=== PATIENT | female | born 1965 | race Caucasian/White ===

== ENCOUNTER 2016-11-27 01:44 | Emergency (ER) | payer MEDICAID ==
[~2016-11-27] VITALS: Ht 160 cm; Wt 105.5 kg
[~2016-11-27 01:44] MED LIST: ALBU8.5H IH; ARIP30TA5 PO; BECL8.7A5 IH; FLUO-191 PO; MOME13HF IH; OMEP20 PO
[2016-11-27] MEDS ORDERED: TRAM50TA4 PO (01:56)
[2016-11-27] MEDS ORDERED: BARIUM SULFATE 0.1% SUSPENSION 450 ML BOTTLE PO ONE (02:45)
[2016-11-27] MEDS ORDERED: ONDANSETRON HCL 4 MG/2 ML VIAL IVP ONE (03:00)
[2016-11-27] MEDS ORDERED: HYDROmorphone 2 MG/ML SYRINGE IVP ONE (03:00)
[2016-11-27 03:14] LABS: BASOPHILS # (AUTO) 0.04 K/uL (0.00-0.20); BASOPHILS % (AUTO) 0.3 % (0.0-2.0); EOSINOPHILS # (AUTO) 0.44 K/uL (0.00-0.70); EOSINOPHILS % (AUTO) 3.93 % (1.0-6.0); HEMATOCRIT 41.2 % (36-46); HEMOGLOBIN 13.6 g/dL (12.0-16.0); LYMPHOCYTES # (AUTO) 4.6 K/uL (1.0-4.8); LYMPHOCYTES % (AUTO) 41.2 % (22.0-44.0); MEAN CORPUSCULAR HEMOGLOBIN 29.7 pg (26.0-34.0); MEAN CORPUSCULAR VOLUME 90 fL (80-100); MONOCYTES # (AUTO) 1.1 K/uL (0.1-1.0); NEUTROPHILS % (AUTO) 44.5 % (40.0-70.0); PLATELET COUNT (AUTO) 320 K/uL (150-450); RED BLOOD CELL COUNT(AUTO) 4.57 MIL/uL (4.00-5.20); RED CELL DISTRIBUTION WIDTH 15.1 % (11.5-14.5); WHITE BLOOD COUNT (AUTO) 11.2 K/uL (4.5-11.0)
[2016-11-27 03:16] LABS: APPEARANCE,URINE CLOUDY (CLEAR); GLUCOSE, URINE (UA) NEGATIVE (NEGATIVE); KETONES,URINE NEGATIVE (NEGATIVE); LEUKOCYTE ESTERASE ,URINE SMALL (NEGATIVE); OCCULT BLOOD,URINE NEGATIVE (NEGATIVE); PROTEIN,URINE NEGATIVE (NEGATIVE)
[2016-11-27 03:21] LABS: RBC,URINE 0-2 /HPF (0-2)
[2016-11-27 03:22] LABS: ANION GAP 7 mmol/L (8-16); CALCIUM, TOTAL 8.2 mg/dL (8.8-10.5); CARBON DIOXIDE 30 mmol/L (22-29); CHLORIDE 106 mmol/L (98-107); CREATININE 0.71 mg/dL (0.60-1.30); GLOMERULAR FILTR. RATE CALC > 60 mL/min (>60); POTASSIUM 3.6 mmol/L (3.5-5.1); SODIUM SERUM 143 mmol/L (136-145); UREA NITROGEN, BLOOD 13 mg/dL (7-18)
[2016-11-27 03:22] LABS: SQUAMOUS EPITHELIAL CELL,UR Many /LPF (None Seen)
[2016-11-27 03:28] LABS: ALANINE AMINOTRANSFERASE 23 U/L (12-78); ALBUMIN 3.2 g/dL (3.4-5.0); ASPARTATE AMINOTRANSFERASE 14 U/L (15-37); BILIRUBIN,TOTAL 0.2 mg/dL (0.1-1.0); TOTAL PROTEIN, SERUM 7.4 g/dL (6.4-8.2)
[2016-11-27] MEDS ORDERED: IOVERSOL 350 MG/ML 150 ML VIAL ONE (04:08)
[2016-11-27] MEDS ORDERED: SODIUM CHLORIDE 0.9% 100 ML ONE (04:09)
[2016-11-27 05:30] VITALS: BP 114/78
[2016-11-27] MEDS ORDERED: HYDROCODONE/ACETAMINOPHEN 5-325 MG TABLET PO ONE (05:30)
[2016-11-27] MEDS ORDERED: MAG HYDROX/AL HYDROX/SIMETH ES 30 ML SUSPENSION UDCUP PO ONE (05:30)
== END 2016-11-27 05:44 | disposition home or self-care (01) ==
LOC: EMS 01:45
DX: R10.84 Generalized abdominal pain (principal); M25.561 Pain in right knee; J45.909 Unspecified asthma, uncomplicated; I10 Essential (primary) hypertension; J44.9 Chronic obstructive pulmonary disease, unspecified; K21.9 Gastro-esophageal reflux disease without esophagitis; E78.00 Pure hypercholesterolemia, unspecified; E11.9 Type 2 diabetes mellitus without complications; E66.9 Obesity, unspecified; F17.210 Nicotine dependence, cigarettes, uncomplicated; Z68.41 Body mass index [BMI] 40.0-44.9, adult; Z98.84 Bariatric surgery status; Z88.1 Allergy status to other antibiotic agents
CPT/HCPCS: 36415; 71010; 74177; 80053; 81001; 83605; 83690; 84484; 85025; 87077; 87086; 93005; 96374; 96375; 99285; 99406; J1170; J2405; J7050; Q9967; Z7610

== ENCOUNTER 2016-12-29 16:09 | Emergency (ER) | payer MEDICAID ==
[~2016-12-29] VITALS: Ht 160 cm; Wt 100.0 kg
[~2016-12-29 16:09] MED LIST changes: +TRAM50TA4 PO
[2016-12-29] MEDS ORDERED: ATOR10TA84 PO (16:27)
[2016-12-29] MEDS ORDERED: SYMB8060 IH (16:27)
[2016-12-29] MEDS ORDERED: FAMOTIDINE 10 MG/ML 2 ML VIAL IVP ONE (17:30)
[2016-12-29] MEDS ORDERED: SODIUM CHLORIDE 0.9% 1,000 ML IV ONE (17:30)
[2016-12-29] MEDS ORDERED: MORPHINE SULFATE 4 MG/ML SYRINGE IVP ONE (17:30)
[2016-12-29] MEDS ORDERED: ONDANSETRON HCL 4 MG/2 ML VIAL IVP ONE ×2 (17:30→19:45)
[2016-12-29 18:15] LABS: BASOPHILS # (AUTO) 0.09 K/uL (0.00-0.20); BASOPHILS % (AUTO) 0.8 % (0.0-2.0); EOSINOPHILS # (AUTO) 0.53 K/uL (0.00-0.70); EOSINOPHILS % (AUTO) 4.79 % (1.0-6.0); HEMATOCRIT 45.3 % (36-46); HEMOGLOBIN 14.6 g/dL (12.0-16.0); LYMPHOCYTES # (AUTO) 4.4 K/uL (1.0-4.8); LYMPHOCYTES % (AUTO) 40.2 % (22.0-44.0); MEAN CORPUSCULAR HEMOGLOBIN 29.2 pg (26.0-34.0); MEAN CORPUSCULAR HGB CONC 32.3 G/dL (31.0-37.0); MEAN CORPUSCULAR VOLUME 90 fL (80-100); MONOCYTES # (AUTO) 0.8 K/uL (0.1-1.0); MONOCYTES % (AUTO) 7.4 % (2.0-9.0); NEUTROPHILS # (AUTO) 5.2 K/uL (1.8-7.7); NEUTROPHILS % (AUTO) 46.9 % (40.0-70.0); PLATELET COUNT (AUTO) 283 K/uL (150-450); RED BLOOD CELL COUNT(AUTO) 5.01 MIL/uL (4.00-5.20); WHITE BLOOD COUNT (AUTO) 11.1 K/uL (4.5-11.0)
[2016-12-29 18:29] LABS: ANION GAP 8 mmol/L (8-16); CALCIUM, TOTAL 8.7 mg/dL (8.8-10.5); CARBON DIOXIDE 29 mmol/L (22-29); CHLORIDE 105 mmol/L (98-107); CREATININE 0.85 mg/dL (0.60-1.30); GLOMERULAR FILTR. RATE CALC > 60 mL/min (>60); POTASSIUM 3.5 mmol/L (3.5-5.1); SODIUM SERUM 142 mmol/L (136-145); UREA NITROGEN, BLOOD 10 mg/dL (7-18)
[2016-12-29 18:44] LABS: ALANINE AMINOTRANSFERASE 23 U/L (12-78); ALBUMIN 3.7 g/dL (3.4-5.0); ASPARTATE AMINOTRANSFERASE 18 U/L (15-37); BILIRUBIN,TOTAL 0.3 mg/dL (0.1-1.0); TOTAL PROTEIN, SERUM 7.8 g/dL (6.4-8.2)
[2016-12-29] MEDS ORDERED: HYDROmorphone 2 MG/ML SYRINGE IVP ONE (19:45)
[2016-12-29 19:53] LABS: APPEARANCE,URINE CLEAR (CLEAR); GLUCOSE, URINE (UA) NEGATIVE (NEGATIVE); KETONES,URINE NEGATIVE (NEGATIVE); LEUKOCYTE ESTERASE ,URINE SMALL (NEGATIVE); OCCULT BLOOD,URINE NEGATIVE (NEGATIVE); PH,URINE 6.5 (5.0-8.0); PROTEIN,URINE NEGATIVE (NEGATIVE)
[2016-12-29 19:59] LABS: ADD UA MICROSCOPIC YES
[2016-12-29 20:01] LABS: RBC,URINE None Seen /HPF (0-2)
[2016-12-29 21:09] VITALS: BP 118/89
== END 2016-12-29 21:10 | disposition home or self-care (01) ==
LOC: EMS 16:10
DX: R19.7 Diarrhea, unspecified (principal); J44.9 Chronic obstructive pulmonary disease, unspecified; F31.9 Bipolar disorder, unspecified; F41.9 Anxiety disorder, unspecified; R10.84 Generalized abdominal pain; R11.0 Nausea; J45.909 Unspecified asthma, uncomplicated; E11.9 Type 2 diabetes mellitus without complications; E78.00 Pure hypercholesterolemia, unspecified; K21.9 Gastro-esophageal reflux disease without esophagitis; G43.909 Migraine, unspecified, not intractable, without status migrainosus; E66.9 Obesity, unspecified; I10 Essential (primary) hypertension; F17.210 Nicotine dependence, cigarettes, uncomplicated; Z87.19 Personal history of other diseases of the digestive system; Z86.19 Personal history of other infectious and parasitic diseases; Z98.84 Bariatric surgery status; Z90.49 Acquired absence of other specified parts of digestive tract; Z68.39 Body mass index [BMI] 39.0-39.9, adult
CPT/HCPCS: 36415; 80053; 80307; 81001; 83690; 85025; 96361; 96374; 96375; 96376; 99285; 99406; J1170; J2270; J2405; J3490; J7030

== ENCOUNTER 2017-02-01 17:09 | Emergency (ER) | payer MEDICAID ==
[~2017-02-01] VITALS: Ht 160 cm; Wt 100.0 kg
[~2017-02-01 17:09] MED LIST changes: +ATOR10TA84 PO; -BECL8.7A5 IH; -MOME13HF IH; +SYMB8060 IH; -TRAM50TA4 PO
[2017-02-01] MEDS ORDERED: MULT1CAP32 PO (17:29)
[2017-02-01 19:03] VITALS: BP 135/84
== END 2017-02-01 19:19 | disposition home or self-care (01) ==
LOC: EMS 17:18
DX: S10.91XA Abrasion of unspecified part of neck, initial encounter (principal); J44.9 Chronic obstructive pulmonary disease, unspecified; J45.909 Unspecified asthma, uncomplicated; E78.00 Pure hypercholesterolemia, unspecified; E11.9 Type 2 diabetes mellitus without complications; K21.9 Gastro-esophageal reflux disease without esophagitis; F17.210 Nicotine dependence, cigarettes, uncomplicated; Z88.1 Allergy status to other antibiotic agents; W57.XXXA Bitten or stung by nonvenomous insect and other nonvenomous arthropods, initial encounter; Y93.89 Activity, other specified; Y92.89 Other specified places as the place of occurrence of the external cause; Y99.8 Other external cause status
CPT/HCPCS: 99283

== ENCOUNTER 2017-02-12 20:57 | Emergency (ER) | payer MEDICAID ==
[~2017-02-12] VITALS: Ht 162.6 cm; Wt 100.0 kg
[~2017-02-12 20:57] MED LIST changes: +MULT1CAP32 PO
[2017-02-12] MEDS ORDERED: ACETAMINOPHEN 325 MG TABLET PO ONE (23:30)
[2017-02-13] MEDS ORDERED: KETOROLAC TROMETHAMINE 30 MG/ML VIAL IVP ONE
[2017-02-13] MEDS ORDERED: SODIUM CHLORIDE 0.9% 1,000 ML IV ONE
[2017-02-13] MEDS ORDERED: VALPROATE SODIUM 500 MG in DEXTROSE 5%-WATER 50 ML IV ONE ×2
[2017-02-13] MEDS ORDERED: ONDANSETRON HCL 4 MG/2 ML VIAL IVP ONE
[2017-02-13 00:35] LABS: BASOPHILS # (AUTO) 0.05 K/uL (0.00-0.20); BASOPHILS % (AUTO) 0.6 % (0.0-2.0); EOSINOPHILS # (AUTO) 0.41 K/uL (0.00-0.70); EOSINOPHILS % (AUTO) 4.13 % (1.0-6.0); HEMOGLOBIN 14.2 g/dL (12.0-16.0); LYMPHOCYTES # (AUTO) 4.5 K/uL (1.0-4.8); LYMPHOCYTES % (AUTO) 45.3 % (22.0-44.0); MEAN CORPUSCULAR HGB CONC 33.1 G/dL (31.0-37.0); MEAN CORPUSCULAR VOLUME 91 fL (80-100); MONOCYTES # (AUTO) 0.9 K/uL (0.1-1.0); MONOCYTES % (AUTO) 8.7 % (2.0-9.0); NEUTROPHILS # (AUTO) 4.1 K/uL (1.8-7.7); NEUTROPHILS % (AUTO) 41.3 % (40.0-70.0); PLATELET COUNT (AUTO) 288 K/uL (150-450); RED BLOOD CELL COUNT(AUTO) 4.75 MIL/uL (4.00-5.20); RED CELL DISTRIBUTION WIDTH 15.2 % (11.5-14.5); WHITE BLOOD COUNT (AUTO) 9.9 K/uL (4.5-11.0)
[2017-02-13 00:44] LABS: ANION GAP 7 mmol/L (8-16); CALCIUM, TOTAL 8.6 mg/dL (8.8-10.5); CARBON DIOXIDE 29 mmol/L (22-29); CHLORIDE 106 mmol/L (98-107); CREATININE 0.82 mg/dL (0.60-1.30); GLOMERULAR FILTR. RATE CALC > 60 mL/min (>60); POTASSIUM 4.1 mmol/L (3.5-5.1); SODIUM SERUM 142 mmol/L (136-145); UREA NITROGEN, BLOOD 15 mg/dL (7-18)
[2017-02-13 03:07] VITALS: BP 132/81
== END 2017-02-13 03:12 | disposition home or self-care (01) ==
LOC: EMS 20:59
DX: G43.909 Migraine, unspecified, not intractable, without status migrainosus (principal); F41.9 Anxiety disorder, unspecified; F31.9 Bipolar disorder, unspecified; B19.20 Unspecified viral hepatitis C without hepatic coma; E11.9 Type 2 diabetes mellitus without complications; E66.9 Obesity, unspecified; K21.9 Gastro-esophageal reflux disease without esophagitis; E78.00 Pure hypercholesterolemia, unspecified; I10 Essential (primary) hypertension; F17.210 Nicotine dependence, cigarettes, uncomplicated; J44.9 Chronic obstructive pulmonary disease, unspecified; Z98.84 Bariatric surgery status; Z88.1 Allergy status to other antibiotic agents; Z90.49 Acquired absence of other specified parts of digestive tract; Z87.19 Personal history of other diseases of the digestive system
CPT/HCPCS: 36415; 80048; 85025; 96374; 96375; 99284; 99406; G0480; J1885; J2405; J3490; J7030; J7060

== ENCOUNTER 2017-03-13 11:28 | Emergency (ER) | payer MEDICAID ==
[~2017-03-13] VITALS: Ht 160 cm; Wt 100.0 kg
[~2017-03-13 11:28] MED LIST changes: -MULT1CAP32 PO; -OMEP20 PO
[2017-03-13 14:23] VITALS: BP 145/89
[2017-03-15] MEDS ORDERED: CORTSOL OU (14:03)
== END 2017-03-13 14:27 | disposition home or self-care (01) ==
LOC: EMS 11:49
DX: H60.91 Unspecified otitis externa, right ear (principal); J45.909 Unspecified asthma, uncomplicated; J44.9 Chronic obstructive pulmonary disease, unspecified; E11.9 Type 2 diabetes mellitus without complications; K21.9 Gastro-esophageal reflux disease without esophagitis; E78.00 Pure hypercholesterolemia, unspecified; F17.210 Nicotine dependence, cigarettes, uncomplicated; E66.9 Obesity, unspecified; Z68.39 Body mass index [BMI] 39.0-39.9, adult; Z98.84 Bariatric surgery status; Z88.1 Allergy status to other antibiotic agents
CPT/HCPCS: 99281; 99283

== ENCOUNTER 2017-03-31 13:56 | Emergency (ER) | payer MEDICAID ==
[~2017-03-31] VITALS: Ht 160 cm; Wt 100.0 kg
[~2017-03-31 13:56] MED LIST changes: -ALBU8.5H IH; +ALBU8.5H8 IH; +ARIP30TA PO; -ARIP30TA5 PO; +CORTSOL OU
[2017-03-31 14:53] LABS: APPEARANCE,URINE HAZY (CLEAR); GLUCOSE, URINE (UA) NEGATIVE (NEGATIVE); KETONES,URINE TRACE mg/dL (NEGATIVE); LEUKOCYTE ESTERASE ,URINE MODERATE (NEGATIVE); OCCULT BLOOD,URINE NEGATIVE (NEGATIVE); PROTEIN,URINE NEGATIVE (NEGATIVE)
[2017-03-31 14:56] LABS: RBC,URINE 0-2 /HPF (0-2); SQUAMOUS EPITHELIAL CELL,UR Few /LPF (None Seen); WBC,URINE 0-2 /HPF (0-5)
[2017-03-31 14:58] LABS: URINALYSIS COMMENT Moderate Trich. seen
[2017-03-31 15:08] VITALS: BP 128/82
[2017-03-31] MEDS ORDERED: LIDOCAINE HCL/PF 1% 2 ML VIAL IM ONE (15:15)
[2017-03-31] MEDS ORDERED: CefTRIAXone SODIUM 1 GM/VIAL IM ONE (15:15)
== END 2017-03-31 15:58 | disposition home or self-care (01) ==
LOC: EMS 13:58
DX: N39.0 Urinary tract infection, site not specified (principal); A59.01 Trichomonal vulvovaginitis; R35.0 Frequency of micturition; F31.9 Bipolar disorder, unspecified; F41.9 Anxiety disorder, unspecified; F17.210 Nicotine dependence, cigarettes, uncomplicated; J44.9 Chronic obstructive pulmonary disease, unspecified; K21.9 Gastro-esophageal reflux disease without esophagitis; E78.00 Pure hypercholesterolemia, unspecified; G43.909 Migraine, unspecified, not intractable, without status migrainosus; E66.9 Obesity, unspecified; Z88.1 Allergy status to other antibiotic agents; B19.20 Unspecified viral hepatitis C without hepatic coma
CPT/HCPCS: 81001; 96372; 99283; J0696; J3490

== ENCOUNTER 2017-06-22 16:45 | Emergency (ER) | payer MEDICAID ==
[~2017-06-22] VITALS: Ht 160 cm; Wt 96.4 kg
[2017-06-22] MEDS ORDERED: PERCT PO (16:52)
[2017-06-22 17:57] LABS: BASOPHILS # (AUTO) 0.03 K/uL (0.00-0.20); BASOPHILS % (AUTO) 0.2 % (0.0-2.0); EOSINOPHILS # (AUTO) 0.37 K/uL (0.00-0.70); EOSINOPHILS % (AUTO) 2.58 % (1.0-6.0); HEMATOCRIT 41.4 % (36-46); HEMOGLOBIN 13.7 g/dL (12.0-16.0); LYMPHOCYTES # (AUTO) 2.6 K/uL (1.0-4.8); LYMPHOCYTES % (AUTO) 18.1 % (22.0-44.0); MEAN CORPUSCULAR VOLUME 91 fL (80-100); MONOCYTES # (AUTO) 1.1 K/uL (0.1-1.0); MONOCYTES % (AUTO) 7.8 % (2.0-9.0); NEUTROPHILS # (AUTO) 10.3 K/uL (1.8-7.7); NEUTROPHILS % (AUTO) 71.3 % (40.0-70.0); PLATELET COUNT (AUTO) 526 K/uL (150-450); RED BLOOD CELL COUNT(AUTO) 4.56 MIL/uL (4.00-5.20); RED CELL DISTRIBUTION WIDTH 15.3 % (11.5-14.5); WHITE BLOOD COUNT (AUTO) 14.5 K/uL (4.5-11.0)
[2017-06-22 18:00] LABS: ANION GAP 7 mmol/L (8-16); CALCIUM, TOTAL 9.1 mg/dL (8.8-10.5); CARBON DIOXIDE 31 mmol/L (22-29); CHLORIDE 99 mmol/L (98-107); CREATININE 0.58 mg/dL (0.60-1.30); GLOMERULAR FILTR. RATE CALC > 60 mL/min (>60); SODIUM SERUM 137 mmol/L (136-145); UREA NITROGEN, BLOOD 16 mg/dL (7-18)
[2017-06-22 18:06] LABS: ALANINE AMINOTRANSFERASE 44 U/L (12-78); ALBUMIN 3.3 g/dL (3.4-5.0); ASPARTATE AMINOTRANSFERASE 27 U/L (15-37); BILIRUBIN,TOTAL 0.4 mg/dL (0.1-1.0); TOTAL PROTEIN, SERUM 7.9 g/dL (6.4-8.2)
[2017-06-22 18:19] LABS: APPEARANCE,URINE CLEAR (CLEAR); GLUCOSE, URINE (UA) NEGATIVE (NEGATIVE); KETONES,URINE NEGATIVE (NEGATIVE); LEUKOCYTE ESTERASE ,URINE NEGATIVE (NEGATIVE); OCCULT BLOOD,URINE NEGATIVE (NEGATIVE); PH,URINE 5.5 (5.0-8.0); PROTEIN,URINE NEGATIVE (NEGATIVE)
[2017-06-22 18:20] LABS: ADD UA MICROSCOPIC NO
[2017-06-22] MEDS ORDERED: MORPHINE SULFATE 4 MG/ML SYRINGE IVP ONE (18:45)
[2017-06-22] MEDS ORDERED: SODIUM CHLORIDE 0.9% 1,000 ML IV ONE (18:45)
[2017-06-22] MEDS ORDERED: ONDANSETRON HCL 4 MG/2 ML VIAL IVP ONE (18:45)
[2017-06-22] MEDS ORDERED: FAMOTIDINE 10 MG/ML 2 ML VIAL IVP ONE (18:45)
[2017-06-22] MEDS ORDERED: LORazepam 2 MG/ML VIAL IVP ONE (20:30)
[2017-06-22 22:44] VITALS: BP 128/76
== END 2017-06-22 22:53 | disposition home or self-care (01) ==
LOC: EMS 16:49
DX: R11.2 Nausea with vomiting, unspecified (principal); R10.84 Generalized abdominal pain; J45.909 Unspecified asthma, uncomplicated; J44.9 Chronic obstructive pulmonary disease, unspecified; K21.9 Gastro-esophageal reflux disease without esophagitis; G43.909 Migraine, unspecified, not intractable, without status migrainosus; E78.00 Pure hypercholesterolemia, unspecified; E66.9 Obesity, unspecified; F17.210 Nicotine dependence, cigarettes, uncomplicated; Z68.37 Body mass index [BMI] 37.0-37.9, adult; Z88.8 Allergy status to other drugs, medicaments and biological substances
CPT/HCPCS: 36415; 70450; 74022; 80053; 81003; 83690; 84484; 85025; 93005; 96361; 96374; 96375; 99285; J2060; J2270; J2405; J3490; J7030

== ENCOUNTER 2017-07-25 12:44 | Emergency (ER) | payer MEDICAID ==
[~2017-07-25] VITALS: Ht 160 cm; Wt 94.5 kg
[~2017-07-25 12:44] MED LIST changes: -ARIP30TA PO; -ATOR10TA84 PO; -CORTSOL OU; -FLUO-191 PO; +PERCT PO
[2017-07-25] MEDS ORDERED: ALBUTEROL SULFATE 2.5 MG/0.5 ML NEB SOLUTION NEB ONE (13:00)
[2017-07-25] MEDS ORDERED: IPRATROPIUM BROMIDE 0.5 MG/2.5 ML NEB SOLUTION NEB ONE (13:00)
[2017-07-25] MEDS ORDERED: 0.9% SODIUM CHLORIDE 5 ML NEB SOLUTION NEB ONE (13:02)
[2017-07-25 15:21] LABS: INFLUENZA TYPE A NEGATIVE FOR TYPE A (NEGATIVE); INFLUENZA TYPE B NEGATIVE FOR TYPE B (NEGATIVE)
[2017-07-25 15:30] VITALS: BP 113/73
[2017-07-25] MEDS ORDERED: LEVOFLOXACIN 500 MG TABLET PO ONE (16:00)
[2017-07-25] MEDS ORDERED: PredniSONE 20 MG TABLET PO ONE (16:00)
== END 2017-07-25 16:05 | disposition home or self-care (01) ==
LOC: EDUNIT# 12:44 → EMS 12:46
DX: J44.1 Chronic obstructive pulmonary disease with (acute) exacerbation (principal); R06.03 Acute respiratory distress; J45.901 Unspecified asthma with (acute) exacerbation; K21.9 Gastro-esophageal reflux disease without esophagitis; E66.9 Obesity, unspecified; F17.210 Nicotine dependence, cigarettes, uncomplicated; Z88.1 Allergy status to other antibiotic agents; Z68.36 Body mass index [BMI] 36.0-36.9, adult
CPT/HCPCS: 71046; 87804; 94640; 99285; J7512; J7613

== ENCOUNTER 2017-08-15 14:48 | Emergency (ER) | payer MEDICAID ==
[~2017-08-15] VITALS: Ht 162.6 cm; Wt 89.1 kg
[2017-08-15 16:55] VITALS: BP 128/68
== END 2017-08-15 17:07 | disposition home or self-care (01) ==
LOC: EMS 14:50
DX: S60.445A External constriction of left ring finger, initial encounter (principal); R03.0 Elevated blood-pressure reading, without diagnosis of hypertension; J44.9 Chronic obstructive pulmonary disease, unspecified; J45.909 Unspecified asthma, uncomplicated; K21.9 Gastro-esophageal reflux disease without esophagitis; F17.210 Nicotine dependence, cigarettes, uncomplicated; Z88.1 Allergy status to other antibiotic agents; W49.04XA Ring or other jewelry causing external constriction, initial encounter; Y93.89 Activity, other specified; Y92.89 Other specified places as the place of occurrence of the external cause; Y99.8 Other external cause status
CPT/HCPCS: 99284

== ENCOUNTER 2018-01-16 22:55 | Emergency (ER) | payer MEDICAID ==
[~2018-01-16] VITALS: Ht 160 cm; Wt 95.5 kg
[2018-01-16] MEDS ORDERED: TRAM50TA4 PO (23:12)
[2018-01-17 00:58] VITALS: BP 116/54
== END 2018-01-17 01:01 | disposition home or self-care (01) ==
LOC: EMS 22:57
DX: M25.562 Pain in left knee (principal); M79.89 Other specified soft tissue disorders; J45.909 Unspecified asthma, uncomplicated; J44.9 Chronic obstructive pulmonary disease, unspecified; K21.9 Gastro-esophageal reflux disease without esophagitis; E78.00 Pure hypercholesterolemia, unspecified; G43.909 Migraine, unspecified, not intractable, without status migrainosus; F17.210 Nicotine dependence, cigarettes, uncomplicated; E66.9 Obesity, unspecified; Z88.1 Allergy status to other antibiotic agents; Z68.37 Body mass index [BMI] 37.0-37.9, adult; Z98.84 Bariatric surgery status
CPT/HCPCS: 99284

== ENCOUNTER 2018-03-03 18:38 | Emergency (ER) | payer MEDICAID ==
[~2018-03-03 18:38] MED LIST changes: -PERCT PO; +TRAM50TA4 PO
== END 2018-03-03 18:51 | disposition left against medical advice (07) ==
LOC: EMS 18:40
DX: H92.09 Otalgia, unspecified ear (principal); Z53.21 Procedure and treatment not carried out due to patient leaving prior to being seen by health care provider

== ENCOUNTER 2018-03-06 16:08 | Emergency (ER) | payer MEDICAID ==
[~2018-03-06] VITALS: Ht 160 cm; Wt 93.2 kg
[2018-03-06] MEDS ORDERED: IBUPROFEN 800 MG TABLET PO ONE (17:15)
[2018-03-06 17:26] VITALS: BP 105/62
== END 2018-03-06 17:27 | disposition home or self-care (01) ==
LOC: EMS 16:09
DX: H60.93 Unspecified otitis externa, bilateral (principal); F41.9 Anxiety disorder, unspecified; J45.909 Unspecified asthma, uncomplicated; F31.9 Bipolar disorder, unspecified; J44.9 Chronic obstructive pulmonary disease, unspecified; K21.9 Gastro-esophageal reflux disease without esophagitis; E78.00 Pure hypercholesterolemia, unspecified; G43.909 Migraine, unspecified, not intractable, without status migrainosus; E66.9 Obesity, unspecified; F17.210 Nicotine dependence, cigarettes, uncomplicated; Z68.36 Body mass index [BMI] 36.0-36.9, adult; Z90.49 Acquired absence of other specified parts of digestive tract; Z98.84 Bariatric surgery status; Z96.653 Presence of artificial knee joint, bilateral; Z88.1 Allergy status to other antibiotic agents
CPT/HCPCS: 99283

== ENCOUNTER 2018-10-20 20:00 | Emergency (ER) | payer MEDICAID ==
[~2018-10-20] VITALS: Ht 157.5 cm; Wt 95.5 kg
[2018-10-20 20:04] VITALS: BP 147/103
[2018-10-20] MEDS ORDERED: ATOR40TA28 PO (20:08)
[2018-10-20] MEDS ORDERED: IBUPROFEN 600 MG TABLET PO ONE (20:30)
== END 2018-10-20 22:22 | disposition left against medical advice (07) ==
LOC: EMS 20:01
DX: S63.502A Unspecified sprain of left wrist, initial encounter (principal); E78.00 Pure hypercholesterolemia, unspecified; K21.9 Gastro-esophageal reflux disease without esophagitis; J44.9 Chronic obstructive pulmonary disease, unspecified; F31.9 Bipolar disorder, unspecified; F41.9 Anxiety disorder, unspecified; F17.210 Nicotine dependence, cigarettes, uncomplicated; Z88.1 Allergy status to other antibiotic agents; W18.39XA Other fall on same level, initial encounter; Y93.89 Activity, other specified; Y92.89 Other specified places as the place of occurrence of the external cause; Y99.8 Other external cause status

== ENCOUNTER 2018-11-06 16:38 | Emergency (ER) | payer MEDICAID ==
[~2018-11-06] VITALS: Ht 157.5 cm; Wt 100.0 kg
[~2018-11-06 16:38] MED LIST changes: +ATOR40TA28 PO
[2018-11-06] MEDS ORDERED: HYD50 PO (16:43)
[2018-11-06] MEDS ORDERED: PERM60CR4 TP (16:43)
[2018-11-06] MEDS ORDERED: PRAMOXINE HCL/BENZYL ALCOHOL 1% 35 GM GEL TP ONE (18:00)
[2018-11-06] MEDS ORDERED: DiphenhydrAMINE/ZINC ACET 30 GM CREAM TP ONE (18:00)
[2018-11-06 18:19] VITALS: BP 139/90
== END 2018-11-06 18:31 | disposition home or self-care (01) ==
LOC: EMS 16:39
DX: R21 Rash and other nonspecific skin eruption (principal); E66.01 Morbid (severe) obesity due to excess calories; F17.210 Nicotine dependence, cigarettes, uncomplicated; F41.9 Anxiety disorder, unspecified; F31.9 Bipolar disorder, unspecified; E78.00 Pure hypercholesterolemia, unspecified; G43.909 Migraine, unspecified, not intractable, without status migrainosus; Z68.41 Body mass index [BMI] 40.0-44.9, adult
CPT/HCPCS: 99406

== ENCOUNTER 2019-03-06 10:44 | Emergency (ER) | payer MEDICAID ==
[~2019-03-06] VITALS: Ht 160 cm; Wt 95.0 kg
[~2019-03-06 10:44] MED LIST changes: +HYD50 PO; +PERM60CR4 TP
[2019-03-06 13:27] VITALS: BP 135/74
== END 2019-03-06 13:37 | disposition home or self-care (01) ==
LOC: EMS 10:47
DX: S60.444A External constriction of right ring finger, initial encounter (principal); R03.0 Elevated blood-pressure reading, without diagnosis of hypertension; F41.9 Anxiety disorder, unspecified; F31.9 Bipolar disorder, unspecified; J44.9 Chronic obstructive pulmonary disease, unspecified; K21.9 Gastro-esophageal reflux disease without esophagitis; E78.00 Pure hypercholesterolemia, unspecified; G43.909 Migraine, unspecified, not intractable, without status migrainosus; F17.210 Nicotine dependence, cigarettes, uncomplicated; Z90.49 Acquired absence of other specified parts of digestive tract; Z88.1 Allergy status to other antibiotic agents; W49.04XA Ring or other jewelry causing external constriction, initial encounter; Y93.89 Activity, other specified; Y92.89 Other specified places as the place of occurrence of the external cause; Y99.8 Other external cause status

== ENCOUNTER 2019-06-23 11:44 | Emergency (ER) | payer MEDICAID ==
[~2019-06-23] VITALS: Ht 160 cm; Wt 95.5 kg
[2019-06-23 12:40] VITALS: BP 108/72
== END 2019-06-23 12:48 | disposition home or self-care (01) ==
LOC: EMS 11:45
DX: L03.114 Cellulitis of left upper limb (principal); E78.00 Pure hypercholesterolemia, unspecified; G43.909 Migraine, unspecified, not intractable, without status migrainosus; E66.9 Obesity, unspecified; J44.9 Chronic obstructive pulmonary disease, unspecified; K21.9 Gastro-esophageal reflux disease without esophagitis; F17.210 Nicotine dependence, cigarettes, uncomplicated; F31.9 Bipolar disorder, unspecified; F41.9 Anxiety disorder, unspecified; Z90.49 Acquired absence of other specified parts of digestive tract; Z98.890 Other specified postprocedural states; Z79.899 Other long term (current) drug therapy; Z88.8 Allergy status to other drugs, medicaments and biological substances; Z96.653 Presence of artificial knee joint, bilateral; Z86.19 Personal history of other infectious and parasitic diseases; Z68.37 Body mass index [BMI] 37.0-37.9, adult

== ENCOUNTER 2019-09-24 23:53 | Emergency (ER) | payer MEDICAID ==
[~2019-09-24] VITALS: Ht 157.5 cm; Wt 100.0 kg
[~2019-09-24 23:53] MED LIST changes: -ATOR40TA28 PO; -HYD50 PO; -PERM60CR4 TP; -SYMB8060 IH; -TRAM50TA4 PO
[2019-09-25] MEDS ORDERED: ONDANSETRON HCL 4 MG/2 ML VIAL IVP ONE (01:15)
[2019-09-25] MEDS ORDERED: SODIUM CHLORIDE 0.9% 1,000 ML IV ONE (01:15)
[2019-09-25 01:38] LABS: BASOPHILS % (AUTO) 0.7 % (0.0-2.0); EOSINOPHILS % (AUTO) 4.5 % (1.0-6.0); HEMATOCRIT 44.8 % (36-46); HEMOGLOBIN 15.1 g/dL (12.0-16.0); LYMPHOCYTES % (AUTO) 41.9 % (22.0-44.0); MEAN CORPUSCULAR HEMOGLOBIN 29.9 pg (26.0-34.0); MEAN CORPUSCULAR HGB CONC 33.7 G/dL (31.0-37.0); MEAN CORPUSCULAR VOLUME 89 fL (80-100); MONOCYTES # (AUTO) 0.8 K/uL (0.1-1.0); MONOCYTES % (AUTO) 8.6 % (2.0-9.0); NEUTROPHILS # (AUTO) 4.2 K/uL (1.8-7.7); NEUTROPHILS % (AUTO) 44.3 % (40.0-70.0); PLATELET COUNT (AUTO) 344 K/uL (150-450); RED BLOOD CELL COUNT(AUTO) 5.05 MIL/uL (4.00-5.20); RED CELL DISTRIBUTION WIDTH 14.9 % (11.5-14.5)
[2019-09-25 01:45] LABS: ANION GAP 5 mmol/L (8-16); CALCIUM, TOTAL 8.7 mg/dL (8.8-10.5); CARBON DIOXIDE 30 mmol/L (22-29); CHLORIDE 103 mmol/L (98-107); CREATININE 0.84 mg/dL (0.60-1.30); GLOMERULAR FILTR. RATE CALC > 60 mL/min (>60); GLUCOSE,RANDOM 98 mg/dL (70-110); POTASSIUM 3.6 mmol/L (3.5-5.1); SODIUM SERUM 138 mmol/L (136-145); UREA NITROGEN, BLOOD 24 mg/dL (7-18)
[2019-09-25 01:56] LABS: ALANINE AMINOTRANSFERASE 24 U/L (12-78); ALBUMIN 3.3 g/dL (3.4-5.0); ALKALINE PHOSPHATASE 82 U/L (46-116); ASPARTATE AMINOTRANSFERASE 15 U/L (15-37); BILIRUBIN,TOTAL 0.2 mg/dL (0.1-1.0); HCG,QUANTITATIVE 3 mIU/mL (0-6); LIPASE 207 U/L (73-393); TOTAL PROTEIN, SERUM 7.1 g/dL (6.4-8.2)
[2019-09-25 03:09] LABS: APPEARANCE,URINE CLEAR (CLEAR); BILIRUBIN,URINE NEGATIVE (NEGATIVE); GLUCOSE, URINE (UA) NEGATIVE (NEGATIVE); KETONES,URINE NEGATIVE (NEGATIVE); LEUKOCYTE ESTERASE ,URINE NEGATIVE (NEGATIVE); NITRATE,URINE NEGATIVE (NEGATIVE); OCCULT BLOOD,URINE NEGATIVE (NEGATIVE); PROTEIN,URINE NEGATIVE (NEGATIVE); UROBILINOGEN,URINE 0.2 mg/dL (<=1.0)
[2019-09-25 03:19] LABS: BACTERIA,URINE None Seen /HPF (None Seen); RBC,URINE 0-2 /HPF (0-2); SQUAMOUS EPITHELIAL CELL,UR Rare /LPF (None Seen); WBC,URINE None Seen /HPF (0-5)
[2019-09-25 03:53] VITALS: BP 139/71
== END 2019-09-25 03:56 | disposition home or self-care (01) ==
LOC: EMS 23:54
DX: R11.2 Nausea with vomiting, unspecified (principal); J44.9 Chronic obstructive pulmonary disease, unspecified; F17.210 Nicotine dependence, cigarettes, uncomplicated; E78.00 Pure hypercholesterolemia, unspecified; G43.909 Migraine, unspecified, not intractable, without status migrainosus; Z88.1 Allergy status to other antibiotic agents; Z79.899 Other long term (current) drug therapy
CPT/HCPCS: 36415; 80053; 81001; 83690; 84702; 85025; 96361; 96374; 99285; J2405; J7030

== ENCOUNTER 2020-06-16 09:35 | Emergency (ER) | payer MEDICAID ==
[~2020-06-16] VITALS: Ht 165.1 cm; Wt 118.2 kg
[2020-06-16 10:20] VITALS: BP 128/70
[2020-06-16] MEDS ORDERED: LIDOCAINE 1%/EPI 1:200,000/PF 30 ML VIAL PERC ONE (10:30)
[2020-06-16] MEDS ORDERED: PERTUSS(ACELL),DIPH,TET VAC/PF 0.5 ML VIAL IM ONE (10:30)
[2020-06-16] MEDS ORDERED: KETOROLAC TROMETHAMINE 30 MG/ML VIAL IM ONE (12:15)
== END 2020-06-16 13:10 | disposition home or self-care (01) ==
LOC: EMS 09:37
DX: S01.01XA Laceration without foreign body of scalp, initial encounter (principal); F41.9 Anxiety disorder, unspecified; J44.9 Chronic obstructive pulmonary disease, unspecified; K21.9 Gastro-esophageal reflux disease without esophagitis; E78.00 Pure hypercholesterolemia, unspecified; G43.909 Migraine, unspecified, not intractable, without status migrainosus; E66.9 Obesity, unspecified; Z86.19 Personal history of other infectious and parasitic diseases; Z90.49 Acquired absence of other specified parts of digestive tract; Z86.2 Personal history of diseases of the blood and blood-forming organs and certain disorders involving the immune mechanism; F17.210 Nicotine dependence, cigarettes, uncomplicated; W22.8XXA Striking against or struck by other objects, initial encounter; Y93.89 Activity, other specified; Y92.89 Other specified places as the place of occurrence of the external cause; Y99.8 Other external cause status
CPT/HCPCS: 70450; 90471; 90715; 96372; 99284; J1885; J3490

== ENCOUNTER 2021-02-07 13:28 | Emergency (ER) | payer MEDICAID ==
[~2021-02-07] VITALS: Ht 162.6 cm; Wt 100.0 kg
[2021-02-07 13:30] VITALS: BP 110/68
== END 2021-02-07 15:53 | disposition home or self-care (01) ==
LOC: EMS 13:28
DX: S60.444A External constriction of right ring finger, initial encounter (principal); F41.9 Anxiety disorder, unspecified; F31.9 Bipolar disorder, unspecified; J45.909 Unspecified asthma, uncomplicated; K21.9 Gastro-esophageal reflux disease without esophagitis; E78.00 Pure hypercholesterolemia, unspecified; G43.909 Migraine, unspecified, not intractable, without status migrainosus; F17.210 Nicotine dependence, cigarettes, uncomplicated; Z90.89 Acquired absence of other organs; Z88.8 Allergy status to other drugs, medicaments and biological substances; W49.04XA Ring or other jewelry causing external constriction, initial encounter; Y93.89 Activity, other specified; Y92.89 Other specified places as the place of occurrence of the external cause; Y99.8 Other external cause status
CPT/HCPCS: 99284; Z7502

== ENCOUNTER 2021-03-26 12:52 | Emergency (ER) | payer MEDICAID ==
[~2021-03-26] VITALS: Ht 157.5 cm; Wt 100.0 kg
[2021-03-26] MEDS ORDERED: ACETAMINOPHEN/CODEINE 300-30 MG TABLET PO ONE (14:15)
[2021-03-26 15:16] VITALS: BP 117/72
== END 2021-03-26 15:19 | disposition left against medical advice (07) ==
LOC: EMS 12:54
DX: M54.5 Low back pain (principal); F41.9 Anxiety disorder, unspecified; J45.909 Unspecified asthma, uncomplicated; F31.9 Bipolar disorder, unspecified; J44.9 Chronic obstructive pulmonary disease, unspecified; F17.210 Nicotine dependence, cigarettes, uncomplicated; Z90.89 Acquired absence of other organs; Z88.6 Allergy status to analgesic agent; W01.0XXA Fall on same level from slipping, tripping and stumbling without subsequent striking against object, initial encounter; Y93.01 Activity, walking, marching and hiking; Y92.89 Other specified places as the place of occurrence of the external cause; Y99.8 Other external cause status
CPT/HCPCS: 72100; 99283

== ENCOUNTER 2021-07-31 17:30 | Emergency (ER) | payer MEDICAID ==
[~2021-07-31] VITALS: Ht 160 cm; Wt 100.0 kg
[2021-07-31 18:43] LABS: BASOPHILS % (AUTO) 0.2 % (0.0-2.0); EOSINOPHILS % (AUTO) 5.4 % (1.0-6.0); HEMATOCRIT 38.6 % (36-46); HEMOGLOBIN 13.2 g/dL (12.0-16.0); LYMPHOCYTES # (AUTO) 1.8 K/uL (1.0-4.8); LYMPHOCYTES % (AUTO) 18.2 % (22.0-44.0); MEAN CORPUSCULAR HEMOGLOBIN 29.8 pg (26.0-34.0); MEAN CORPUSCULAR HGB CONC 34.3 G/dL (31.0-37.0); MEAN CORPUSCULAR VOLUME 87 fL (80-100); MONOCYTES # (AUTO) 1.4 K/uL (0.1-1.0); MONOCYTES % (AUTO) 13.8 % (2.0-9.0); NEUTROPHILS # (AUTO) 6.3 K/uL (1.8-7.7); NEUTROPHILS % (AUTO) 62.4 % (40.0-70.0); PLATELET COUNT (AUTO) 355 K/uL (150-450); RED BLOOD CELL COUNT(AUTO) 4.44 MIL/uL (4.00-5.20); RED CELL DISTRIBUTION WIDTH 14.5 % (11.5-14.5)
[2021-07-31 18:49] LABS: ANION GAP 4 mmol/L (8-16); CALCIUM, TOTAL 8.4 mg/dL (8.8-10.5); CARBON DIOXIDE 32 mmol/L (22-29); CHLORIDE 104 mmol/L (98-107); GLOMERULAR FILTR. RATE CALC > 60 mL/min (>60); GLUCOSE,RANDOM 109 mg/dL (70-110); POTASSIUM 3.9 mmol/L (3.5-5.1); SODIUM SERUM 140 mmol/L (136-145); UREA NITROGEN, BLOOD 14 mg/dL (7-18)
[2021-07-31 18:55] LABS: ALANINE AMINOTRANSFERASE 99 U/L (12-78); ALBUMIN 2.5 g/dL (3.4-5.0); ALKALINE PHOSPHATASE 97 U/L (46-116); ASPARTATE AMINOTRANSFERASE 25 U/L (15-37); BILIRUBIN,TOTAL 0.3 mg/dL (0.1-1.0); LIPASE 146 U/L (73-393)
[2021-07-31 19:51] LABS: APPEARANCE,URINE CLEAR (CLEAR); BILIRUBIN,URINE NEGATIVE (NEGATIVE); GLUCOSE, URINE (UA) NEGATIVE (NEGATIVE); KETONES,URINE NEGATIVE (NEGATIVE); LEUKOCYTE ESTERASE ,URINE NEGATIVE (NEGATIVE); NITRATE,URINE NEGATIVE (NEGATIVE); OCCULT BLOOD,URINE NEGATIVE (NEGATIVE); PH,URINE 5.5 (5.0-8.0); PROTEIN,URINE NEGATIVE (NEGATIVE)
[2021-07-31 19:54] LABS: BACTERIA,URINE Rare /HPF (None Seen); RBC,URINE 0-2 /HPF (0-2); WBC,URINE 0-2 /HPF (0-5)
[2021-07-31] MEDS ORDERED: MAGNESIUM CITRATE 300 ML ORAL SOLUTION PO ONE (20:15)
[2021-07-31 22:00] VITALS: BP 148/85
== END 2021-07-31 22:15 | disposition left against medical advice (07) ==
LOC: EMS 17:31
DX: G89.18 Other acute postprocedural pain (principal); R10.32 Left lower quadrant pain; K59.00 Constipation, unspecified; E78.00 Pure hypercholesterolemia, unspecified; F31.9 Bipolar disorder, unspecified; F41.9 Anxiety disorder, unspecified; J44.9 Chronic obstructive pulmonary disease, unspecified; F17.210 Nicotine dependence, cigarettes, uncomplicated; Z88.1 Allergy status to other antibiotic agents; Z79.899 Other long term (current) drug therapy
CPT/HCPCS: 80053; 81001; 83690; 84484; 85025; 93005; 99284

== ENCOUNTER 2021-10-19 21:21 | Emergency (ER) | payer MEDICAID ==
[~2021-10-19] VITALS: Ht 162.6 cm; Wt 100.0 kg
[2021-10-19 22:51] VITALS: BP 146/93
[2021-10-19] MEDS ORDERED: CEPHALEXIN MONOHYDRATE 500 MG CAPSULE PO ONE (23:30)
[2021-10-19] MEDS ORDERED: PERTUSS(ACELL),DIPH,TET VAC/PF 0.5 ML SYRINGE IM. ONE (23:30)
[2021-10-19] MEDS ORDERED: ACETAMINOPHEN 500 MG TABLET PO ONE (23:30)
[2021-10-19] MEDS ORDERED: BACITRACIN 0.9 GM PACKET OINTMENT TP ONE (23:30)
[2021-10-19] MEDS ORDERED: SULFAMETHOX/TRIMETH DS 800-160 MG/TABLET PO ONE (23:30)
[2021-10-19] MEDS ORDERED: SULF-261 PO (23:47)
[2021-10-19] MEDS ORDERED: CEPH-558 PO (23:47)
== END 2021-10-20 04:55 | disposition left against medical advice (07) ==
LOC: EMS 21:25
DX: S61.205A Unspecified open wound of left ring finger without damage to nail, initial encounter (principal); L03.012 Cellulitis of left finger; F31.9 Bipolar disorder, unspecified; F41.9 Anxiety disorder, unspecified; E78.00 Pure hypercholesterolemia, unspecified; K21.9 Gastro-esophageal reflux disease without esophagitis; F17.210 Nicotine dependence, cigarettes, uncomplicated; Z88.1 Allergy status to other antibiotic agents; Z79.899 Other long term (current) drug therapy; W49.04XA Ring or other jewelry causing external constriction, initial encounter; Y93.89 Activity, other specified; Y92.89 Other specified places as the place of occurrence of the external cause; Y99.8 Other external cause status
CPT/HCPCS: 99284; Z7502

== ENCOUNTER 2021-10-25 20:06 | Emergency (ER) | payer MEDICAID ==
[~2021-10-25] VITALS: Ht 167.6 cm; Wt 100.0 kg
[~2021-10-25 20:06] MED LIST changes: +CEPH-558 PO; +SULF-261 PO
[2021-10-25 20:44] LABS: BASOPHILS % (AUTO) 0.5 % (0.0-2.0); EOSINOPHILS % (AUTO) 5.1 % (1.0-6.0); HEMATOCRIT 42.1 % (36-46); HEMOGLOBIN 14.4 g/dL (12.0-16.0); LYMPHOCYTES # (AUTO) 2.9 K/uL (1.0-4.8); LYMPHOCYTES % (AUTO) 35.2 % (22.0-44.0); MEAN CORPUSCULAR HEMOGLOBIN 29.5 pg (26.0-34.0); MEAN CORPUSCULAR HGB CONC 34.1 G/dL (31.0-37.0); MEAN CORPUSCULAR VOLUME 87 fL (80-100); MONOCYTES # (AUTO) 0.7 K/uL (0.1-1.0); MONOCYTES % (AUTO) 8.7 % (2.0-9.0); NEUTROPHILS # (AUTO) 4.1 K/uL (1.8-7.7); NEUTROPHILS % (AUTO) 50.5 % (40.0-70.0); PLATELET COUNT (AUTO) 334 K/uL (150-450); RED BLOOD CELL COUNT(AUTO) 4.87 MIL/uL (4.00-5.20); RED CELL DISTRIBUTION WIDTH 15.1 % (11.5-14.5)
[2021-10-25] MEDS ORDERED: IPRATROPIUM BROMIDE 0.5 MG/2.5 ML NEB SOLUTION NEB ONE (20:45)
[2021-10-25] MEDS ORDERED: ONDANSETRON HCL 4 MG/2 ML VIAL IVP ONE (20:45)
[2021-10-25] MEDS ORDERED: ALBUTEROL SULFATE 2.5 MG/0.5 ML NEB SOLUTION NEB ONE (20:45)
[2021-10-25 20:52] LABS: CALCIUM, TOTAL 8.1 mg/dL (8.8-10.5); CREATININE 1.36 mg/dL (0.60-1.30); POTASSIUM 3.6 mmol/L (3.5-5.1)
[2021-10-25 20:58] LABS: ALBUMIN 3.4 g/dL (3.4-5.0); BILIRUBIN,TOTAL 0.3 mg/dL (0.1-1.0); TOTAL PROTEIN, SERUM 7.1 g/dL (6.4-8.2)
[2021-10-25 22:33] VITALS: BP 155/87
== END 2021-10-25 22:47 | disposition home or self-care (01) ==
LOC: EDUNIT# 20:06 → EMS 20:13
DX: J44.1 Chronic obstructive pulmonary disease with (acute) exacerbation (principal); F17.210 Nicotine dependence, cigarettes, uncomplicated; E66.9 Obesity, unspecified; Z87.19 Personal history of other diseases of the digestive system; Z90.49 Acquired absence of other specified parts of digestive tract; Z88.1 Allergy status to other antibiotic agents
CPT/HCPCS: 36415; 71045; 80053; 83880; 84484; 85025; 93005; 94640; 96374; 99285; J2405; J7613

== ENCOUNTER 2022-02-05 | Emergency (ER) | payer MEDICAID ==
[~2022-02-05] VITALS: Ht 162.6 cm; Wt 113.6 kg
[2022-02-05 01:02] VITALS: BP 145/100
[2022-02-05] MEDS ORDERED: ONDANSETRON HCL 4 MG TABLET PO ONE (01:45)
== END 2022-02-05 02:11 | disposition left against medical advice (07) ==
LOC: EMS 00:01
DX: Z53.21 Procedure and treatment not carried out due to patient leaving prior to being seen by health care provider (principal)

== ENCOUNTER 2022-04-13 10:09 | Emergency (ER) | payer MEDICAID ==
[~2022-04-13] VITALS: Ht 160 cm; Wt 109.1 kg
[2022-04-13 10:34] VITALS: BP 135/89
[2022-04-13] MEDS ORDERED: OFLOXACIN 0.3% 5 ML OTIC SOLUTION AD ONE (11:00)
[2022-04-13] MEDS ORDERED: CIPROFLOXACIN HCL 250 MG TABLET PO ONE (11:00)
[2022-04-13] MEDS ORDERED: OFLO5DRO21 AD (11:04)
[2022-04-13] MEDS ORDERED: CIPR500T10 PO (11:04)
== END 2022-04-13 11:24 | disposition home or self-care (01) ==
LOC: EMS 10:16
DX: H60.91 Unspecified otitis externa, right ear (principal); E66.9 Obesity, unspecified; F17.210 Nicotine dependence, cigarettes, uncomplicated; J44.9 Chronic obstructive pulmonary disease, unspecified; Z87.19 Personal history of other diseases of the digestive system; Z98.84 Bariatric surgery status; Z90.89 Acquired absence of other organs; Z90.49 Acquired absence of other specified parts of digestive tract; Z88.6 Allergy status to analgesic agent
CPT/HCPCS: 99283

== ENCOUNTER 2024-01-22 18:45 | Emergency (ER) | payer MEDICAID ==
[~2024-01-22] VITALS: Ht 160 cm; Wt 102.2 kg
[~2024-01-22 18:45] MED LIST changes: +CIPR500T10 PO; +OFLO5DRO4 AD
[2024-01-22 18:50] VITALS: BP 121/87; PULSE 86; RESP 18; TEMP 98.2
[2024-01-22 20:41] LABS: BASOPHILS % (AUTO) 0.7 % (0.0-2.0); EOSINOPHILS % (AUTO) 4.4 % (1.0-6.0); HEMOGLOBIN 15.7 g/dL (12.0-16.0); LYMPHOCYTES # (AUTO) 3.7 K/uL (1.0-4.8); LYMPHOCYTES % (AUTO) 38.2 % (22.0-44.0); MEAN CORPUSCULAR HEMOGLOBIN 29.3 pg (26.0-34.0); MEAN CORPUSCULAR HGB CONC 32.7 G/dL (31.0-37.0); MEAN CORPUSCULAR VOLUME 90 fL (80-100); MONOCYTES # (AUTO) 0.9 K/uL (0.1-1.0); NEUTROPHILS # (AUTO) 4.6 K/uL (1.8-7.7); NEUTROPHILS % (AUTO) 47.7 % (40.0-70.0); PLATELET COUNT (AUTO) 324 K/uL (150-450); RED BLOOD CELL COUNT(AUTO) 5.35 MIL/uL (4.00-5.20); RED CELL DISTRIBUTION WIDTH 15.6 % (11.5-14.5); WHITE BLOOD COUNT (AUTO) 9.7 K/uL (4.5-11.0)
[2024-01-22 20:52] LABS: CALCIUM, TOTAL 8.3 mg/dL (8.8-10.5); CREATININE 1.02 mg/dL (0.60-1.30); POTASSIUM 3.7 mmol/L (3.5-5.1)
[2024-01-22 21:00] LABS: BILIRUBIN,TOTAL 0.3 mg/dL (0.1-1.0); TOTAL PROTEIN, SERUM 6.7 g/dL (6.4-8.2)
== END 2024-01-22 22:21 | disposition home or self-care (01) ==
LOC: EMS 18:50
DX: R10.32 Left lower quadrant pain (principal); F17.210 Nicotine dependence, cigarettes, uncomplicated; J44.9 Chronic obstructive pulmonary disease, unspecified; Z88.1 Allergy status to other antibiotic agents; Z88.5 Allergy status to narcotic agent
CPT/HCPCS: 80053; 85025; 99283

== ENCOUNTER 2024-04-14 06:57 | Emergency (ER) | payer MEDICAID ==
[~2024-04-14] VITALS: Ht 157.5 cm; Wt 113.6 kg
[2024-04-14 07:06] VITALS: TEMP 98.1
[2024-04-14] MEDS: OxyCODONE HCL/ACETAMINOPHEN 10-325 MG TABLET PO ONE (07:32)
[2024-04-14] MEDS: IPRATROPIUM BROMIDE 0.5 MG/2.5 ML NEB SOLUTION NEB ONE (07:38)
[2024-04-14] MEDS: ALBUTEROL SULFATE 2.5 MG/0.5 ML NEB SOLUTION NEB ONE (07:38)
[2024-04-14 07:40] VITALS: PULSE 80; RESP 20; O2SAT 98
[2024-04-14 07:55] VITALS: PULSE 79; RESP 20; O2SAT 100
[2024-04-14 11:00] VITALS: BP 141/82; PULSE 98; RESP 26; O2SAT 98
[2024-04-14] MEDS: HYDROmorphone HCL 2 MG/ML SYRINGE IVP ONE (11:21)
[2024-04-14] MEDS: ONDANSETRON HCL 4 MG/2 ML VIAL IVP ONE (11:22)
[2024-04-14 11:27] LABS: BASOPHILS % (AUTO) 0.9 % (0.0-2.0); EOSINOPHILS % (AUTO) 2.5 % (1.0-6.0); HEMATOCRIT 48.2 % (36-46); HEMOGLOBIN 15.8 g/dL (12.0-16.0); LYMPHOCYTES % (AUTO) 29.6 % (22.0-44.0); MEAN CORPUSCULAR HEMOGLOBIN 29.3 pg (26.0-34.0); MEAN CORPUSCULAR HGB CONC 32.8 G/dL (31.0-37.0); MEAN CORPUSCULAR VOLUME 89 fL (80-100); MONOCYTES # (AUTO) 1.3 K/uL (0.1-1.0); MONOCYTES % (AUTO) 7.5 % (2.0-9.0); NEUTROPHILS % (AUTO) 59.5 % (40.0-70.0); PLATELET COUNT (AUTO) 337 K/uL (150-450); RED CELL DISTRIBUTION WIDTH 15.7 % (11.5-14.5); WHITE BLOOD COUNT (AUTO) 16.9 K/uL (4.5-11.0)
[2024-04-14 11:34] LABS: CALCIUM, TOTAL 8.3 mg/dL (8.8-10.5); CREATININE 1.07 mg/dL (0.60-1.30); POTASSIUM 4.5 mmol/L (3.5-5.1)
[2024-04-14] MEDS ORDERED: PERCT PO (12:54)
[2024-04-14] MEDS ORDERED: IBUP-1492 PO (12:54)
== END 2024-04-14 15:42 | disposition home or self-care (01) ==
LOC: EMS 06:59
DX: J44.1 Chronic obstructive pulmonary disease with (acute) exacerbation (principal); R10.12 Left upper quadrant pain; F17.210 Nicotine dependence, cigarettes, uncomplicated; Z90.49 Acquired absence of other specified parts of digestive tract; Z96.659 Presence of unspecified artificial knee joint; Z88.5 Allergy status to narcotic agent; Z88.1 Allergy status to other antibiotic agents; Z98.84 Bariatric surgery status
CPT/HCPCS: 99285; 74176; 96374; 96375; 80048; 85025; 36415; 94640; 73552; J1171; J2405

== ENCOUNTER 2024-10-16 12:30 | Emergency (ER) | payer MEDICAID ==
[~2024-10-16] VITALS: Ht 167.6 cm; Wt 84.1 kg
[~2024-10-16 12:30] MED LIST changes: -ALBU8.5H8 IH; -CEPH-558 PO; -CIPR500T10 PO; +IBUP-1492 PO; -OFLO5DRO4 AD; +PERCT PO; -SULF-261 PO
[2024-10-16 12:41] VITALS: BP 127/90; PULSE 66; RESP 18; TEMP 98.6; O2SAT 98
== END 2024-10-16 15:15 | disposition left against medical advice (07) ==
LOC: EMS 12:36
DX: R10.84 Generalized abdominal pain (principal); Z53.21 Procedure and treatment not carried out due to patient leaving prior to being seen by health care provider; Z88.1 Allergy status to other antibiotic agents; Z88.5 Allergy status to narcotic agent

== ENCOUNTER 2024-11-08 21:43 | Emergency (ER) | payer MEDICAID ==
[~2024-11-08] VITALS: Ht 160 cm; Wt 128.6 kg
[2024-11-08 21:56] VITALS: BP 146/98; PULSE 100; RESP 20; TEMP 98; O2SAT 98
[2024-11-08 23:03] LABS: BASOPHILS % (AUTO) 0.5 % (0.0-2.0); EOSINOPHILS % (AUTO) 9.6 % (1.0-6.0); HEMATOCRIT 41.3 % (36-46); HEMOGLOBIN 13.7 g/dL (12.0-16.0); LYMPHOCYTES # (AUTO) 3.7 K/uL (1.0-4.8); LYMPHOCYTES % (AUTO) 30.8 % (22.0-44.0); MEAN CORPUSCULAR HEMOGLOBIN 29.3 pg (26.0-34.0); MEAN CORPUSCULAR HGB CONC 33.2 G/dL (31.0-37.0); MEAN CORPUSCULAR VOLUME 88 fL (80-100); MONOCYTES # (AUTO) 1.2 K/uL (0.1-1.0); MONOCYTES % (AUTO) 10.1 % (2.0-9.0); NEUTROPHILS # (AUTO) 5.9 K/uL (1.8-7.7); PLATELET COUNT (AUTO) 319 K/uL (150-450); RED BLOOD CELL COUNT(AUTO) 4.68 MIL/uL (4.00-5.20); RED CELL DISTRIBUTION WIDTH 14.9 % (11.5-14.5)
[2024-11-08 23:13] LABS: CALCIUM, TOTAL 8.6 mg/dL (8.8-10.5); CREATININE 1.15 mg/dL (0.60-1.30); POTASSIUM 3.7 mmol/L (3.5-5.1)
[2024-11-08 23:17] LABS: ALBUMIN 3.3 g/dL (3.4-5.0); BILIRUBIN,DIRECT 0.1 mg/dL (0.00-0.20); BILIRUBIN,TOTAL 0.4 mg/dL (0.1-1.0); TOTAL PROTEIN, SERUM 6.9 g/dL (6.4-8.2)
[2024-11-08 23:20] LABS: LACTIC ACID 1.5 mmol/L (0.4-2.0)
[2024-11-08] MEDS ORDERED: CLIN300C58 PO (23:32)
[2024-11-08] MEDS ORDERED: BACI28.410 TP (23:32)
[2024-11-08] MEDS ORDERED: CEPH-558 PO (23:32)
[2024-11-08] MEDS ORDERED: HYDR-4062 PO (23:33)
[2024-11-08] MEDS: DiphenhydrAMINE HCL 25 MG CAPSULE PO ONE (23:48)
[2024-11-08] MEDS: clindamycin HCL 150 MG CAPSULE PO ONE (23:48)
[2024-11-08] MEDS: BACITRACIN 0.9 GM PACKET OINTMENT TP ONE (23:48)
[2024-11-08] MEDS: CEPHALEXIN MONOHYDRATE 500 MG CAPSULE PO ONE (23:48)
== END 2024-11-09 00:03 | disposition home or self-care (01) ==
LOC: EMS 21:43
DX: T81.31XA Disruption of external operation (surgical) wound, not elsewhere classified, initial encounter (principal); J44.89 Other specified chronic obstructive pulmonary disease; I10 Essential (primary) hypertension; F17.210 Nicotine dependence, cigarettes, uncomplicated; Z88.1 Allergy status to other antibiotic agents; Z88.5 Allergy status to narcotic agent; Z90.49 Acquired absence of other specified parts of digestive tract; Z86.19 Personal history of other infectious and parasitic diseases; Z98.890 Other specified postprocedural states
CPT/HCPCS: 80048; 80076; 83605; 83690; 85025; 87040; 99284

== ENCOUNTER 2025-03-03 22:35 | Emergency (ER) | payer MEDICAID ==
[~2025-03-03] VITALS: Ht 160 cm; Wt 118.2 kg
[~2025-03-03 22:35] MED LIST changes: +BACI28.410 TP; +CEPH-558 PO; +CLIN300C58 PO; +HYDR-4062 PO; -IBUP-1492 PO; -PERCT PO
[2025-03-03 22:36] VITALS: TEMP 98.1
[2025-03-03] MEDS: IPRATROPIUM BROMIDE 0.5 MG/2.5 ML NEB SOLUTION NEB ONE (23:01)
[2025-03-03] MEDS: ALBUTEROL SULFATE 2.5 MG/0.5 ML NEB SOLUTION NEB ONE ×2 (23:01→23:23)
[2025-03-03 23:10] VITALS: PULSE 92; RESP 32; O2SAT 97
[2025-03-03 23:22] LABS: PLATELET COUNT (AUTO) 330 K/uL (150-450); RED BLOOD CELL COUNT(AUTO) 5.29 MIL/uL (4.00-5.20); RED CELL DISTRIBUTION WIDTH 15.1 % (11.5-14.5); WHITE BLOOD COUNT (AUTO) 9.3 K/uL (4.5-11.0)
[2025-03-03] MEDS ORDERED: 0.9% SODIUM CHLORIDE 5 ML NEB SOLUTION NEB ONE (23:22)
[2025-03-03 23:25] VITALS: PULSE 89; RESP 20; O2SAT 97
[2025-03-03 23:30] VITALS: PULSE 89; RESP 20; O2SAT 98
[2025-03-03 23:45] VITALS: PULSE 86; RESP 20; O2SAT 100
[2025-03-03 23:45] LABS: CALCIUM, TOTAL 8.2 mg/dL (8.8-10.5); CREATININE 0.96 mg/dL (0.60-1.30); GLOMERULAR FILTR. RATE CALC 59 mL/min (>60); GLUCOSE,RANDOM 127 mg/dL (70-110); SODIUM SERUM 141 mmol/L (136-145); UREA NITROGEN, BLOOD 16 mg/dL (7-18)
[2025-03-03 23:53] LABS: TROPONIN I-HIGH SENSITIVITY 20 ng/L (<51)
[2025-03-04] VITALS: BP 134/88; PULSE 98; RESP 18; O2SAT 98
[2025-03-04] MEDS ORDERED: AZITHROMYCIN 500 MG/NS 250 ML IV ONE
[2025-03-04] MEDS ORDERED: AZIT250T9 PO (00:15)
[2025-03-04] MEDS ORDERED: PRED-554 PO (00:15)
[2025-03-04] MEDS ORDERED: ALBU18HF12 IH (00:15)
[2025-03-04] MEDS ORDERED: ALBU2.5V39 NEB (00:16)
[2025-03-04 00:20] LABS: LACTIC ACID 1.3 mmol/L (0.4-2.0)
[2025-03-04] MEDS: AZITHROMYCIN 500 MG TABLET PO ONE (00:20)
== END 2025-03-04 00:28 | disposition left against medical advice (07) ==
LOC: EMS 22:35
DX: J44.0 Chronic obstructive pulmonary disease with (acute) lower respiratory infection (principal); J18.9 Pneumonia, unspecified organism; I10 Essential (primary) hypertension; F17.210 Nicotine dependence, cigarettes, uncomplicated; Z98.890 Other specified postprocedural states; Z88.1 Allergy status to other antibiotic agents; Z86.19 Personal history of other infectious and parasitic diseases; Z88.5 Allergy status to narcotic agent; E66.9 Obesity, unspecified; Z53.29 Procedure and treatment not carried out because of patient's decision for other reasons; Z79.899 Other long term (current) drug therapy
CPT/HCPCS: 99285; 71045; 80048; 83605; 83880; 84484; 85025; 85379; 87040; 36415; 94640; 93005; J7512; J0456; J7613

== ENCOUNTER 2025-04-19 17:31 | Inpatient (IN) | payer MEDICAID ==
[~2025-04-19] VITALS: Ht 160 cm; Wt 113.6 kg
[~2025-04-19 17:31] MED LIST changes: +ALBU18HF12 IH; +ALBU2.5V39 NEB; +PRED-554 PO
[2025-04-19 18:23] LABS: PLATELET COUNT (AUTO) 348 K/uL (150-450); RED BLOOD CELL COUNT(AUTO) 5.62 MIL/uL (4.00-5.20); RED CELL DISTRIBUTION WIDTH 15.1 % (11.5-14.5); WHITE BLOOD COUNT (AUTO) 9.3 K/uL (4.5-11.0)
[2025-04-19 18:29] LABS: CALCIUM, TOTAL 8.1 mg/dL (8.8-10.5); CREATININE 0.67 mg/dL (0.60-1.30); GLOMERULAR FILTR. RATE CALC > 60 mL/min (>60); GLUCOSE,RANDOM 105 mg/dL (70-110); SODIUM SERUM 140 mmol/L (136-145); UREA NITROGEN, BLOOD 17 mg/dL (7-18)
[2025-04-19 18:38] LABS: TROPONIN I-HIGH SENSITIVITY 18 ng/L (<51)
[2025-04-19 18:44] LABS: COVID AG,FIA SOURCE NASAL SWAB
[2025-04-19] MEDS ORDERED: MAGNESIUM HYDROXIDE SUSPENSION 30 ML UDCUP PO PRN (19:00)
[2025-04-19] MEDS ORDERED: ACETAMINOPHEN 325 MG TABLET PO PRN (19:00)
[2025-04-19] MEDS: ALBUTEROL SULFATE 2.5 MG/0.5 ML NEB SOLUTION NEB SCH (19:00)
[2025-04-19] MEDS ORDERED: ONDANSETRON HCL 4 MG/2 ML VIAL IVP PRN (19:00)
[2025-04-19] MEDS ORDERED: IPRATROPIUM BROMIDE 0.5 MG/2.5 ML NEB SOLUTION NEB PRN (19:00)
[2025-04-19] MEDS: IPRATROPIUM BROMIDE 0.5 MG/2.5 ML NEB SOLUTION NEB SCH (19:00)
[2025-04-19] MEDS ORDERED: ALBUTEROL SULFATE 2.5 MG/0.5 ML NEB SOLUTION NEB PRN (19:00)
[2025-04-19] MEDS ORDERED: BISACODYL 10 MG RECTAL RECTAL SUPPOSITORY PR PRN (19:00)
[2025-04-19 19:06] LABS: INFLUENZA TYPE A NEGATIVE FOR TYPE A (NEGATIVE); INFLUENZA TYPE B NEGATIVE FOR TYPE B (NEGATIVE); SARS-COV2 (COVID) ANTIGEN,FIA Negative (Negative)
[2025-04-19] MEDS: ALBUTEROL SULFATE 2.5 MG/0.5 ML NEB SOLUTION NEB ONE (20:09)
[2025-04-19] MEDS: IPRATROPIUM BROMIDE 0.5 MG/2.5 ML NEB SOLUTION NEB ONE (20:09)
[2025-04-19 20:10] VITALS: PULSE 86; RESP 24; O2SAT 97
[2025-04-19] MEDS: AZITHROMYCIN 500 MG/NS 250 ML IV ONE (20:11)
[2025-04-19 20:25] VITALS: PULSE 86; RESP 22; O2SAT 99
[2025-04-19] MEDS: DOCUSATE SODIUM 100 MG CAPSULE PO SCH (20:56)
[2025-04-19 23:55] VITALS: PULSE 97; RESP 20; O2SAT 97
[2025-04-20] VITALS (7 sets, daily range): BP systolic 164; BP diastolic 83; PULSE 93–111; RESP 18–24; TEMP 98.1; O2SAT 93–99
[2025-04-20] MEDS: ZOLPIDEM TARTRATE 5 MG TABLET PO PRN (00:46)
[2025-04-20] MEDS: HEPARIN SODIUM,PORCINE 5,000 UNITS/ML VIAL SQ SCH (00:47)
[2025-04-20] MEDS: LORazepam 2 MG/ML VIAL IVP ONE (02:00)
[2025-04-20] MEDS: PROMETHAZINE HCL 25 MG TABLET PO ONE (02:08)
[2025-04-20] MEDS: PANTOPRAZOLE SODIUM 40 MG DR TABLET PO SCH (09:38)
[2025-04-20] MEDS ORDERED: PROMETHAZINE HCL 6.25 MG/5 ML SOLUTION ORAL.SYG PO PRN (10:15)
[2025-04-20] MEDS ORDERED: AZITHROMYCIN 500 MG/NS 250 ML IV SCH (20:00)
== END 2025-04-20 11:15 | disposition left against medical advice (07) | DRG 139 ==
LOC: EMS 17:43 → EDH 18:46 → 5S 04-20 08:15
PROVIDERS: ADMIT Hospitalist; ATTEND Hospitalist
DX: J18.0 Bronchopneumonia, unspecified organism (principal); J96.01 Acute respiratory failure with hypoxia; J44.1 Chronic obstructive pulmonary disease with (acute) exacerbation; J44.0 Chronic obstructive pulmonary disease with (acute) lower respiratory infection; F17.200 Nicotine dependence, unspecified, uncomplicated; E66.9 Obesity, unspecified; I10 Essential (primary) hypertension; Z20.822 Contact with and (suspected) exposure to COVID-19; Z53.29 Procedure and treatment not carried out because of patient's decision for other reasons; Z88.1 Allergy status to other antibiotic agents; Z88.5 Allergy status to narcotic agent; Z87.01 Personal history of pneumonia (recurrent); Z82.5 Family history of asthma and other chronic lower respiratory diseases; Z71.6 Tobacco abuse counseling; Z87.11 Personal history of peptic ulcer disease; Z68.41 Body mass index [BMI] 40.0-44.9, adult
CPT/HCPCS: 71045; 80048; 83880; 84484; 85025; 87040; 87804; 93005; 94640; 99285; G0378; J0456; J1644; J2060; J2919; 36415-L1; 36415-TC; J7613

== ENCOUNTER 2025-05-17 16:22 | Emergency (ER) | payer MEDICAID ==
[~2025-05-17] VITALS: Ht 160 cm; Wt 114.0 kg
[~2025-05-17 16:22] MED LIST changes: -BACI28.410 TP; -CEPH-558 PO; -CLIN300C58 PO; -HYDR-4062 PO; -PRED-554 PO
[2025-05-17 16:36] VITALS: BP 123/91; PULSE 96; RESP 20; TEMP 98.6; O2SAT 95
== END 2025-05-17 19:40 | disposition left against medical advice (07) ==
LOC: EMS 16:22
DX: R06.02 Shortness of breath (principal); Z53.21 Procedure and treatment not carried out due to patient leaving prior to being seen by health care provider
CPT/HCPCS: 93005; 99281; Z7502

== ENCOUNTER 2025-06-08 02:19 | Emergency (ER) | payer MEDICAID ==
[~2025-06-08] VITALS: Ht 157.5 cm; Wt 113.6 kg
[2025-06-08 02:20] VITALS: BP 118/83; TEMP 98.1
[2025-06-08 03:46] VITALS: PULSE 94; RESP 20; O2SAT 97
[2025-06-08] MEDS: ALBUTEROL SULFATE 2.5 MG/0.5 ML NEB SOLUTION NEB ONE (03:46)
[2025-06-08] MEDS: IPRATROPIUM BROMIDE 0.5 MG/2.5 ML NEB SOLUTION NEB ONE (03:46)
[2025-06-08 03:59] LABS: PLATELET COUNT (AUTO) 309 K/uL (150-450); RED BLOOD CELL COUNT(AUTO) 4.72 MIL/uL (4.00-5.20); RED CELL DISTRIBUTION WIDTH 15.6 % (11.5-14.5); WHITE BLOOD COUNT (AUTO) 9.6 K/uL (4.5-11.0)
[2025-06-08 04:01] VITALS: PULSE 93; RESP 20; O2SAT 98
[2025-06-08 04:03] LABS: CALCIUM, TOTAL 8.1 mg/dL (8.8-10.5); CREATININE 1.09 mg/dL (0.60-1.30); GLOMERULAR FILTR. RATE CALC 51 mL/min (>60); GLUCOSE,RANDOM 96 mg/dL (70-110); SODIUM SERUM 143 mmol/L (136-145); UREA NITROGEN, BLOOD 18 mg/dL (7-18)
[2025-06-08 04:12] LABS: TROPONIN I-HIGH SENSITIVITY 22 ng/L (<51)
[2025-06-08] MEDS ORDERED: PRED-554 PO (04:52)
[2025-06-08] MEDS ORDERED: AZIT250T9 PO (04:52)
== END 2025-06-08 05:04 | disposition home or self-care (01) ==
LOC: EMS 02:19
DX: J44.1 Chronic obstructive pulmonary disease with (acute) exacerbation (principal); I10 Essential (primary) hypertension; E66.9 Obesity, unspecified; F17.210 Nicotine dependence, cigarettes, uncomplicated; Z86.19 Personal history of other infectious and parasitic diseases; Z87.01 Personal history of pneumonia (recurrent); Z88.1 Allergy status to other antibiotic agents; Z88.5 Allergy status to narcotic agent
CPT/HCPCS: 99285; 71045; 80048; 83880; 84484; 85025; 87040; 36415; 94640; 93005; J7512; 94760; J7613